=== PATIENT | male | born 1945 | race Hispanic/Latino ===

== ENCOUNTER → 2018-06-19 | Outpatient (CLI) | payer BC | LOC: RAD 09:53 ==

== ENCOUNTER 2018-08-08 07:55 | Outpatient (CLI) | payer BC | END 2018-08-08 07:56 | disposition home or self-care (01) | LOC: PAT 07:55 ==

== ENCOUNTER 2018-08-13 06:26 | Inpatient (IN) | payer BC, MEDICARE ==
[2018-08-13] MEDS ORDERED: Lidocaine 2% Inj (20ml) ONE (06:47)
[2018-08-13] MEDS ORDERED: Iodixanol 320 MG/ML 200 ML BOTTLE IV ONE (06:48)
[2018-08-13] MEDS ORDERED: Iodixanol 320 mg/ml 150 ml Bottle IV ONE (06:48)
[2018-08-13] MEDS ORDERED: Iodixanol 320 MG/ML 100 ML BOTTLE IV ONE ×2 (06:48→09:18)
[2018-08-13] MEDS ORDERED: Propofol 10 mg/ml Inj (20 ML) ONE (07:06)
[2018-08-13] MEDS ORDERED: ePHEDrine 50 mg/ml Inj ONE (07:06)
[2018-08-13] MEDS ORDERED: Midazolam 2 MG/2 ML VIAL ONE (07:06)
[2018-08-13] MEDS ORDERED: DiphenhydrAMINE 50 mg/ml Inj ONE (07:07)
[2018-08-13] MEDS ORDERED: Phenylephrine 10 mg/ml Inj ONE (07:07)
[2018-08-13] MEDS ORDERED: HYDROmorphone 0.5 mg/0.5 ml ISec IVP PRN (10:31)
[2018-08-13] MEDS ORDERED: Oxycodone/Acetaminophen 5/325 mg Tab PO PRN (10:35)
[2018-08-13] MEDS ORDERED: Sodium Chloride 0.9% 1,000 ML IV SCH (10:45)
[2018-08-13] MEDS ORDERED: Sodium Chloride 0.45% 1,000 ML IV SCH (10:45)
[2018-08-13] MEDS ORDERED: Neostigmine Methylsulfate 3mg/3ml Syringe IV ONE ×2 (11:49→12:13)
[2018-08-13] MEDS ORDERED: Glycopyrrolate 0.2 mg/ml (2ml vial) ONE (11:50)
--- NOTE | 2018-08-13 14:24 | CP.PCM.CON ---
<ZaidMariann - Last Filed: 08/13/18 14:27> History of Present Illness - History of Present Illness History of Present Illness: Mariann Mar, PGY1 ICU Consult Note: CC: AAA Consulted for: s/p AAA repair with monitoring Pt is a 73 yo M w/ pmhx of AAA s/p repair (08/13/18), CAD s/p CABG () and 1 stent (), ulcerative colitis, HTN and HLD who presents to [facility] ICU for monitoring after AAA repair. Pt states that the AAA was found in May by PMD Dr. Painter through routine screening. Pt denies ever experiencing any symptoms related to the AAA. Pt states that after the AAA was found they went to Dr. Senior who scheduled the procedure for today. Pt at this time reports that he is having some soreness in his groin 2/2 access for procedure but otherwise denies fevers, chills, lightheadedness, dizziness, numbness, tingling, weakness, cough, SOB, chest pain, palpitations, abd pain, n/v, c/d or dysuria. Pt states that he has no other acute complaints at this time. Pmhx: AAA s/p repair (08/13/18), CAD s/p CABG () and 1 stent (), ulcerative colitis, HTN and HLD Pshx: CABG, AAA repair Meds: Asa, Apriso, Metoprolol All: NDKA Soc: 1/2 ppd x 15 years, quit in , denies etoh or illicit drug use Fam: Mother: CKD, Father: Colon ca PMD: Dr. Painter Review of Systems - Review of Systems Review of Systems: 12 point ROS reviewed and negative except noted in HPI above. Past Patient History - CARDIAC Hx Pacemaker: No - NEUROLOGICAL Hx Paralysis: No - HEMATOLOGICAL/ONCOLOGICAL Hx Blood Transfusions: No - MUSCULOSKELETAL/RHEUMATOLOGICAL Hx Musculoskeletal Disorders: No - PSYCHIATRIC Hx Emotional Abuse: No Hx Physical Abuse: No Hx Substance Use: No - SURGICAL HISTORY Hx Surgeries: Yes - ANESTHESIA Hx Anesthesia Reactions: No Hx Malignant Hyperthermia: No Meds Allergies/Adverse Reactions: Allergies Allergy/AdvReac Type Severity Reaction Status Date / Time No Known Allergies Allergy Verified 09/23/15 12:16 - Medications Medications: Current Medications Amlodipine Besylate (Norvasc) 5 mg PO DAILY [facility] Aspirin (Ecotrin) 81 mg PO DAILY [facility] Atorvastatin Calcium (Lipitor) 10 mg PO DIN [facility] Hydromorphone HCl (Dilaudid) 0.5 mg IVP Q15M PRN PRN Reason: Pain, Moderate/Severe (4-10) Sodium Chloride (Sodium Chloride 0.45%) 1,000 mls @ 75 mls/hr IV .[id number] [facility] Stop: 08/14/18 06:00 Ibuprofen (Motrin Tab) 600 mg PO Q6H PRN PRN Reason: Pain, Mild (1-3) Metoprolol Succinate (Toprol Xl) 50 mg PO DAILY [facility] Non-Formulary Medication (Mesalamine [Apriso]) 2 cap PO BID [facility] [id number] Ethyl Esters (Lovaza) 1 gm PO 1000 [facility] Ondansetron HCl (Zofran Inj) 4 mg IVP ONCE PRN PRN Reason: Nausea/Vomiting Ondansetron HCl (Zofran Inj) 4 mg IVP Q8H PRN PRN Reason: Nausea/Vomiting Oxycodone/Acetaminophen (Percocet 5/325 Mg Tab) 1 tab PO Q6H PRN PRN Reason: Pain, moderate (4-7) Stop: 08/16/18 10:36 Physical Exam - Constitutional Appears: Non-toxic, No Acute Distress - Head Exam Head Exam: ATRAUMATIC, NORMAL INSPECTION, NORMOCEPHALIC - Eye Exam Eye Exam: EOMI, Normal appearance, PERRL - Respiratory Exam Respiratory Exam: Clear to Auscultation Bilateral, NORMAL BREATHING PATTERN. absent: Accessory Muscle Use, Rales, Rhonchi, Wheezes, Respiratory Distress - Cardiovascular Exam Cardiovascular Exam: RRR, +S1, +S2. absent: Gallop, Rubs - GI/Abdominal Exam GI & Abdominal Exam: Normal Bowel Sounds, Soft. absent: Firm, Guarding, Hernia, Tenderness Additional comments: R and L sided gauze noted on exam, area was non-tender to palpation and no hematoma was noted on exam. - Extremities Exam Extremities exam: Positive for: normal capillary refill, normal inspection, pedal pulses present. Negative for: calf tenderness, pedal edema - Neurological Exam Neurological exam: Alert, Oriented x3 - Psychiatric Exam Psychiatric exam: Normal Affect, Normal Mood - Skin Skin Exam: Dry, Normal Color, Warm Results - Vital Signs Recent Vital Signs: Last Vital Signs Temp 97.4 F L 08/13/18 11:15 Pulse 67 08/13/18 11:15 Resp 19 08/13/18 11:15 BP 161/89 H 08/13/18 11:15 Pulse Ox 98 08/13/18 07:00 - Labs Labs: Laboratory Results - last 24 hr 08/13/18 06:47 Blood Type A NEGATIVE Antibody Screen Negative BBK History Checked Patient has bt Assessment & Plan - Assessment and Plan (Free Text) Assessment: Pt is a 73 yo M w/ pmhx of AAA s/p repair (08/13/18), CAD s/p CABG () and 1 stent (), ulcerative colitis, HTN and HLD who presents to [facility] ICU for monitoring after AAA repair. Plan: Neuro: - AOx3 - Will cont to monitor peripheral sensation - Following commands appropriately Cardio AAA s/p repair: - Will continue to monitor access site for bleeding - LE pulse checks - Neurochecks - Maintain tight BP control - IVF NS@75cc/hr - Cont home norvasc, metoprolol, - Percocet and dilaudid (max 4 doses) for pain management Hx of HTN - Cont norvasc, metoprolol Hx of CAD s/p CABG () and 1 stent () - Cont ASA, metoprolol, Statin Hx of HLD: - Cont home statin Pulm: - Maintain O2> 94% - Will cont to monitor Nephro: - Maintain euvolemia Case seen and discussed with Dr. Lisa Mar, PGY1 <Shane Gonzalez - Last Filed: 08/13/18 15:07> Meds - Medications Medications: Current Medications Amlodipine Besylate (Norvasc) 5 mg PO DAILY [facility] Aspirin (Ecotrin) 81 mg PO DAILY [facility] Atorvastatin Calcium (Lipitor) 10 mg PO DIN [facility] Hydromorphone HCl (Dilaudid) 0.5 mg IVP Q15M PRN PRN Reason: Pain, Moderate/Severe (4-10) Sodium Chloride (Sodium Chloride 0.45%) 1,000 mls @ 75 mls/hr IV .[id number] [facility] Stop: 08/14/18 06:00 Ibuprofen (Motrin Tab) 600 mg PO Q6H PRN PRN Reason: Pain, Mild (1-3) Metoprolol Succinate (Toprol Xl) 50 mg PO DAILY [facility] Non-Formulary Medication (Mesalamine [Apriso]) 2 cap PO BID [facility] [id number] Ethyl Esters (Lovaza) 1 gm PO 1000 [facility] Ondansetron HCl (Zofran Inj) 4 mg IVP ONCE PRN PRN Reason: Nausea/Vomiting Ondansetron HCl (Zofran Inj) 4 mg IVP Q8H PRN PRN Reason: Nausea/Vomiting Oxycodone/Acetaminophen (Percocet 5/325 Mg Tab) 1 tab PO Q6H PRN PRN Reason: Pain, moderate (4-7) Stop: 08/16/18 10:36 Results - Vital Signs Recent Vital Signs: Last Vital Signs Temp 97.4 F L 08/13/18 11:15 Pulse 67 08/13/18 11:15 Resp 19 08/13/18 11:15 BP 161/89 H 08/13/18 11:15 Pulse Ox 98 08/13/18 07:00 - Labs Labs: Laboratory Results - last 24 hr 08/13/18 06:47 Blood Type A NEGATIVE Antibody Screen Negative BBK History Checked Patient has bt Assessment & Plan - Assessment and Plan (Free Text) Plan: I saw and examined the patient on rounds with the resident, agree with note with following additions/exceptions: Pt is a 73 yo M w/ pmhx of AAA s/p repair (08/13/18), CAD s/p CABG ('97) and 1 stent ('99), ulcerative colitis, HTN and HLD who presents to [facility] ICU for monitoring after AAA repair with IR. Currently afebrile, HD stable, comfortable in NAD, doing well post procedure. Cont with home meds IVF Low salt diet ASA, BB, Statin DVT ppx Monitor in MICU
[2018-08-13 15:09] VITALS: BMI 30.9
--- NOTE | 2018-08-13 17:48 | VASCULAR ---
PROCEDURE: 1. Bifurcated infrarenal abdominal aortic stent graft repair 2. Left internal iliac artery embolization 3. Left external iliac artery extension HISTORY: 5.9 cm infrarenal abdominal aortic aneurysm. Bilateral common iliac artery aneurysms. PHYSICIAN(S): Master Senior MD. Monique Graves MD TECHNIQUE: The relative risks and indications of the procedure were explained thoroughly to the patient and consent obtained. The patient was placed supine on the arteriogram table and the groins prepped and draped usual sterile fashion. Conscious sedation monitoring were provided throughout the procedure by anesthesia. The common femoral arteries were punctured inferiorly under ultrasound guidance with a micropuncture set. Two Perclose devices were deployed in each groin. A 6 Italian sheath was placed on the right. A 5 Italian bearing sting catheter was advanced over the bifurcation and placed in the left common iliac artery. With some difficulty, the narrowed takeoff of the left internal iliac artery was cannulated. 0.035 Saima coils were deployed in the left internal iliac artery at the level of the superior gluteal. No off target embolization was performed. Post embolization images were obtained. Bilateral support wires were placed in the thoracic aorta. A 14 Italian sheath was placed on the right and a 12 Italian sheath placed on the left. Over the right wire, a aortic positioned at the renal arteries. It was deployed without difficulty. The polymer was instilled. The contralateral limb was easily cannulated. A 12 x 160 limb was deployed from the contralateral limb to the left external iliac artery. A 12 x 100 extension was placed from the left common iliac artery to the mid left external iliac artery. No leak was detected. On the right, a 28 x 120 right iliac limb was deployed from the ipsilateral gait to the terminal right common iliac artery. The articulations were gently dilated with kissing 10 mm balloons. No proximal or distal leaks were noted. The renal arteries are patent. Brisk flow into the external iliac arteries was noted. The Perclose devices were successfully deployed bilaterally with hemostasis. The patient tolerated the procedure well. FINDINGS: The renal arteries are patent. An infrarenal aortic aneurysm and bilateral common iliac artery aneurysms are noted. Successful embolization left internal iliac artery was performed with extension into the mid left external iliac artery. IMPRESSION: 1. Successful deployment of a bifurcated infrarenal abdominal aortic stent graft as described above. 2. Successful left internal iliac artery embolization with extension of the graft into the mid left external iliac artery. 3. Follow-up CT scan with contrast the abdomen and pelvis is recommended in 1 year.
[2018-08-13] MEDS ORDERED: MESALAMINE PO SCH (18:00)
[2018-08-13] MEDS: MESALAMINE PO SCH (18:29)
--- NOTE | 2018-08-13 19:36 | PCM.PCON ---
History of Present Illness - History of Present Illness History of Present Illness: This is a 73 year old male with past history of AAA s/p repair, CAD s/p CABG and 1 stent, ulcerative colitis, HTN and HLD who presented to [facility] for elective triple AAA repair. Patient states that the AAA was found in May by PMD Dr. Kerry perry through routine screening. He denied experiencing any symptoms related to the AAA. He is now s/p repair and is experiencing some soreness in his groin after procedure. he denies fevers, chills, lightheadedness, dizziness, numbness, tingling, weakness, cough, SOB, chest pain, palpitations, abdominal pain, nausea,vomiting, or dysuria. He states that he has no other acute complaints at this time. Pmhx: AAA s/p repair (08/13/18), CAD s/p CABG () and 1 stent (), ulcerative colitis, HTN and HLD Pshx: CABG, AAA repair Social History:Former smoker (03/14 ppd x 15 years), quit in , denies alcohol or illicit drug use. , lives with spouse Family History: Mother> CKD, Father> Colon cancer Advance Care Planning: He does not have an Advance Directive. Review of Systems: As per HPI, 12 point ROS otherwise negative Physical Exam - Constitutional Appears: No Acute Distress Additional comments: Vital Signs: T 98.0, P 69, BP 140/80 R 19, 97% 02 sat 2L/NC - Head Exam Head Exam: NORMOCEPHALIC - Eye Exam Eye Exam: Normal appearance, PERRL - ENT Exam ENT Exam: Mucous Membranes Moist, Normal Oropharynx - Respiratory Exam Respiratory Exam: Clear to Auscultation Bilateral, NORMAL BREATHING PATTERN - Cardiovascular Exam Cardiovascular Exam: REGULAR RHYTHM, +S1, +S2 - GI/Abdominal Exam GI & Abdominal Exam: Normal Bowel Sounds, Soft - Extremities Exam Extremities exam: Positive for: normal inspection, pedal pulses present - Back Exam Back exam: NORMAL INSPECTION - Neurological Exam Neurological exam: Alert, Oriented x3 - Psychiatric Exam Psychiatric exam: Normal Affect, Normal Mood - Skin Skin Exam: Normal Color, Warm - Additional Findings Additional findings: Palliative performance scale rating 80% Palliative Care Assessment - Pain Description Intensity of pain at present: 2 Alleviating Factors/Management Techniques: Position Change - Gutierrez Scale Sensory Perception: Slightly Limited Moisture: Rarely Moist Activity: Walks Frequently Mobility: Slightly Impaired Nutrition: Adequate Friction & Shear: No Apparent Problem Total Score - Skin Risk Assessment: 20 Palliative Care - Goals Treatment Goal(s): Improve ADLs, Improve quality of life End of life care discussed: Yes - Plan Interdisciplinary involved: Nurse, Physician Assessment & Plan - Assessment and Plan (Free Text) Assessment: This is a 73 year old male with past history of AAA s/p repair, CAD s/p CABG and 1 stent, ulcerative colitis, HTN and HLD who is admitted to [facility] s/p elective AAA repair. I was asked to see this patient because he wanted to discuss advance care planning. His Akua was present during our discussion. He specifically wanted to complete POLST Directive. Benefit and burdens of resuscitation discussed. Questions answered. The patient stated that he wants CPR but does not want to be intubated. POLST directive completed. The patient named his Akua Gomez as his health care surrogate Time spent in goals of care and advance care planning, 30 minutes Plan: Goals of care and advance care planning POLST: DNI S/p AA repair. Continue hemodynamic monitoring
[2018-08-14 06:45] LABS: MEAN CELL VOLUME 88.6 fl (80.0-105.0); MEAN CORPUSCULAR HEMOGLOBIN 29.9 pg (25.0-35.0); MEAN CORPUSCULAR HGB CONC 33.7 g/dl (31.0-37.0); MEAN PLATELET VOLUME 8.7 fl (7.0-11.0); RBC 4.55 10^6/uL (3.5-6.1); RED CELL DISTRIBUTION WIDTH 13.5 % (11.5-14.5); WHITE BLOOD COUNT 10.6 10^3/uL (4.5-11.0)
[2018-08-14 06:48] LABS: HEMOGLOBIN 13.6 g/dL (14.0-18.0)
[2018-08-14 07:09] LABS: BLOOD UREA NITROGEN 12 mg/dL (7-21); CALCIUM 8.6 mg/dL (8.4-10.5); GFR NON-AFRICAN AMERICAN > 60
[2018-08-14 08:45] VITALS: TEMP 99
[2018-08-14] MEDS ORDERED: Metoprolol Succinate 50 mg XL Tab PO SCH (10:00)
[2018-08-14] MEDS ORDERED: FATTY ACIDS PO SCH (10:00)
[2018-08-14] MEDS ORDERED: PRAVASTATIN SODIUM 20 MG PO SCH (10:00)
[2018-08-14] MEDS ORDERED: [UNRECOGNIZED DRUG - OTHER] PO SCH (10:00)
[2018-08-14] MEDS ORDERED: FISH OIL PO SCH (10:00)
[2018-08-14] MEDS ORDERED: OMEGA PO SCH (10:00)
[2018-08-14] MEDS ORDERED: Omega-3-Acid Ethyl Esters 1 GM Cap PO SCH (10:00)
--- NOTE | 2018-08-14 10:32 | CP.PCM.PN ---
Subjective - Date & Time of Evaluation Date of Evaluation: 08/14/18 Time of Evaluation: 10:31 - Subjective Subjective: Pt seen and examined, no major complaints. Denies abd pain, groin pain, doing well. Objective - Vital Signs/Intake and Output Vital Signs (last 24 hours): Temp Pulse Resp BP Pulse Ox 99 F 96 H 11 L 118/82 92 L 08/14/18 08:00 08/14/18 08:40 08/14/18 08:40 08/14/18 08:39 08/14/18 08:40 Intake and Output: 08/14/18 08/14/18 06:59 18:59 Intake Total 750 Output Total 1000 Balance -250 - Medications Medications: Current Medications Amlodipine Besylate (Norvasc) 5 mg PO DAILY [facility] Aspirin (Ecotrin) 81 mg PO DAILY [facility] Atorvastatin Calcium (Lipitor) 10 mg PO DIN [facility] Last Admin: 08/13/18 18:28 Dose: 10 mg Hydromorphone HCl (Dilaudid) 0.5 mg IVP Q15M PRN PRN Reason: Pain, Moderate/Severe (4-10) Ibuprofen (Motrin Tab) 600 mg PO Q6H PRN PRN Reason: Pain, Mild (1-3) Metoprolol Succinate (Toprol Xl) 50 mg PO DAILY [facility] Non-Formulary Medication (Mesalamine [Apriso]) 2 cap PO BID [facility] Last Admin: 08/13/18 18:29 Dose: Not Given Mqujy-4-Fzsu Ethyl Esters (Lovaza) 1 gm PO 1000 [facility] Ondansetron HCl (Zofran Inj) 4 mg IVP ONCE PRN PRN Reason: Nausea/Vomiting Ondansetron HCl (Zofran Inj) 4 mg IVP Q8H PRN PRN Reason: Nausea/Vomiting Oxycodone/Acetaminophen (Percocet 5/325 Mg Tab) 1 tab PO Q6H PRN PRN Reason: Pain, moderate (4-7) Stop: 08/16/18 10:36 - Labs Labs: 08/14/18 05:25 08/14/18 05:25 - Constitutional Appears: Non-toxic, No Acute Distress - Head Exam Head Exam: NORMAL INSPECTION - Eye Exam Eye Exam: Normal appearance - ENT Exam ENT Exam: Mucous Membranes Moist - Neck Exam Neck Exam: Full ROM - Respiratory Exam Respiratory Exam: Respiratory Distress, NORMAL BREATHING PATTERN - Cardiovascular Exam Cardiovascular Exam: REGULAR RHYTHM, +S1, +S2 - GI/Abdominal Exam GI & Abdominal Exam: Soft, Normal Bowel Sounds - Extremities Exam Extremities Exam: Normal Inspection - Back Exam Back Exam: NORMAL INSPECTION - Neurological Exam Neurological Exam: Awake, Normal Gait, Oriented x3 - Psychiatric Exam Psychiatric exam: Normal Affect - Skin Skin Exam: Normal Color, Warm Assessment and Plan - Assessment and Plan (Free Text) Assessment: Pt is a 73 yo M w/ pmhx of AAA s/p repair (08/13/18), CAD s/p CABG () and 1 stent (), ulcerative colitis, HTN and HLD admittedy to ICU for monitoring after AAA repair with IR. Currently afebrile, HD stable, comfortable in NAD, doing well Cont with home meds DC IVF Low salt diet ASA, BB, Statin DVT ppx Stable, DC home
[2018-08-14] MEDS: MESALAMINE PO SCH (10:49)
[2018-08-14 11:26] VITALS: BP 127/68; PULSE 89; RESP 21; O2SAT 95
== END 2018-08-14 13:42 | disposition home or self-care (01) | DRG 269 ==
LOC: SDAINP 06:26 → EDSTATUS 07:30 → CCU 11:31
PROVIDERS: ADMIT Radiology Vascular & Interventional Radiology; ATTEND Radiology Vascular & Interventional Radiology
PROC: 04V03D6 (ICD-10-PCS; principal; 2018-08-13)
PROC: 04VF3DZ Restriction of Left Internal Iliac Artery with Intraluminal Device, Percutaneous Approach (ICD-10-PCS; 2018-08-13)
DX: I71.4 Abdominal aortic aneurysm, without rupture (principal); K51.90 Ulcerative colitis, unspecified, without complications; I72.3 Aneurysm of iliac artery; I25.10 Atherosclerotic heart disease of native coronary artery without angina pectoris; I10 Essential (primary) hypertension; E78.5 Hyperlipidemia, unspecified; Z95.1 Presence of aortocoronary bypass graft